=== PATIENT | male | born 1995 | race Caucasian/White ===

== ENCOUNTER → 2017-05-21 | Outpatient (CLI) | payer BC ==
--- NOTE | 2017-05-21 12:57 | DIAGNOSTIC IMAGING REPORT ---
(TESTICULAR) SCROTUM-CONT HISTORY: Epididymitis N45.1 [id number] COMPARISON: None. FINDINGS: Right testis: Maximum dimension 4.6 cm. Uniform echogenicity. Normal vascular flow. Small hydrocele. Several very small epididymal cyst measuring 3 mm or less. Left testis: Maximum dimension 4.2 cm. Normal vascular flow. Small 3 mm epididymal cyst IMPRESSION: 1. Normal testicular ultrasound. 2. Normal vascular flow is confirmed to both testis. 3. Small bilateral epididymal cysts. 4. Small right hydrocele. The above report was generated using voice recognition software. It may contain grammatical, syntax or spelling errors. Electronically signed by: Harmeet Garcia M.D. 05/21/2017 12:56 PM Dictated Date/Time: 05/21/2017 12:50 PM
== END | disposition home or self-care (01) ==
LOC: C.ULTR 11:55
PROVIDERS: ATTEND Urology
DX: N45.1 Epididymitis (principal); N50.3 Cyst of epididymis; N43.3 Hydrocele, unspecified